=== PATIENT | male | born 1975 | race Caucasian/White ===

== ENCOUNTER → 2024-02-17 | Day surgery (SDC) | payer OTHER ==
[~2024-02-17] MED LIST: ALLEGRA ALLERGY60 MG PO; FLUOXETINE HCL10 MG PO; HYDROXYZINE HCL10 MG PO; LACTATED RINGER'S 1,000 ML ONE; LIDOCAINE HCL 2% LOCAL INJ 5 ML SDV VIAL INJ ONE; MIDAZOLAM HCL 2 MG/2 ML VIAL ONE; OMEPRAZOLE40 MG PO; PROPOFOL IV EMULSION 10 MG/ML 20 ML VIAL ONE
[2024-02-17 10:50] VITALS: TEMP 97.4
[2024-02-17 11:05] VITALS: BP 113/81; PULSE 59; RESP 16; O2SAT 99
== END | disposition home or self-care (01) ==
LOC: OR 09:27
PROVIDERS: ATTEND Internal Medicine Gastroenterology
DX: Z12.11 Encounter for screening for malignant neoplasm of colon (principal); D12.2 Benign neoplasm of ascending colon; D12.0 Benign neoplasm of cecum; D12.4 Benign neoplasm of descending colon; D12.3 Benign neoplasm of transverse colon; K64.8 Other hemorrhoids; K57.30 Diverticulosis of large intestine without perforation or abscess without bleeding; K21.9 Gastro-esophageal reflux disease without esophagitis; D64.9 Anemia, unspecified; R00.1 Bradycardia, unspecified; Z01.810 Encounter for preprocedural cardiovascular examination; Z79.899 Other long term (current) drug therapy
CPT/HCPCS: 45384; 45385; 93005; J2001; J2250; J2704; J7121; 45381

== ENCOUNTER → 2024-08-28 | Day surgery (SDC) | payer OTHER ==
[~2024-08-28] MED LIST changes: +FENTANYL CITRATE/PF 100MCG/2 ML INJ ONE; -LACTATED RINGER'S 1,000 ML ONE; -LIDOCAINE HCL 2% LOCAL INJ 5 ML SDV VIAL INJ ONE; -MIDAZOLAM HCL 2 MG/2 ML VIAL ONE; +SODIUM CHLORIDE 0.9% 0 ML ONE
[2024-08-28] MEDS: LACTATED RINGER'S 1,000 ML ONE (09:03)
[2024-08-28 13:00] VITALS: TEMP 97.5
[2024-08-28 13:30] VITALS: BP 115/62; PULSE 72; RESP 12; O2SAT 97
== END | disposition home or self-care (01) ==
LOC: ENDO 08:46
PROVIDERS: ATTEND Internal Medicine Gastroenterology
DX: K21.9 Gastro-esophageal reflux disease without esophagitis (principal); K29.70 Gastritis, unspecified, without bleeding; K22.2 Esophageal obstruction; K31.89 Other diseases of stomach and duodenum; K44.9 Diaphragmatic hernia without obstruction or gangrene; K57.90 Diverticulosis of intestine, part unspecified, without perforation or abscess without bleeding; K64.8 Other hemorrhoids; F32.A Depression, unspecified; Z01.810 Encounter for preprocedural cardiovascular examination; Z79.899 Other long term (current) drug therapy
CPT/HCPCS: 43239; 43249; 93005; J2704; J3010; J7121; 43450; J7050

== ENCOUNTER → 2024-09-11 | Day surgery (SDC) | payer OTHER ==
[~2024-09-11] MED LIST changes: +KETAMINE 50MG/5ML SYR ONE; +LIDOCAINE HCL 2% LOCAL INJ 5 ML SDV VIAL INJ ONE; -SODIUM CHLORIDE 0.9% 0 ML ONE
[2024-09-11] MEDS: LACTATED RINGER'S 1,000 ML ONE (12:00)
[2024-09-11 14:38] VITALS: TEMP 97.7
[2024-09-11 15:09] VITALS: BP 145/87; PULSE 82; RESP 18; O2SAT 98
== END | disposition home or self-care (01) ==
LOC: ENDO 11:38
PROVIDERS: ATTEND Internal Medicine Gastroenterology
DX: K21.9 Gastro-esophageal reflux disease without esophagitis (principal); K22.2 Esophageal obstruction; K29.70 Gastritis, unspecified, without bleeding; K44.9 Diaphragmatic hernia without obstruction or gangrene; K57.90 Diverticulosis of intestine, part unspecified, without perforation or abscess without bleeding; K64.8 Other hemorrhoids; E66.01 Morbid (severe) obesity due to excess calories; F32.A Depression, unspecified; Z79.899 Other long term (current) drug therapy
CPT/HCPCS: 43249; J2003; J2704; J3010; J7121; 43450

== ENCOUNTER 2024-12-14 12:59 | Emergency (ER) | payer OTHER ==
[~2024-12-14] VITALS: Ht 167.6 cm; Wt 74.8 kg
[~2024-12-14 12:59] MED LIST changes: -FENTANYL CITRATE/PF 100MCG/2 ML INJ ONE; -KETAMINE 50MG/5ML SYR ONE; -LIDOCAINE HCL 2% LOCAL INJ 5 ML SDV VIAL INJ ONE; -PROPOFOL IV EMULSION 10 MG/ML 20 ML VIAL ONE
[2024-12-14 13:33] VITALS: PULSE 89; RESP 18; TEMP 98.2
[2024-12-14 14:01] LABS: BASOPHILS % 0.3 % (0.0-1.0); EOSINOPHILS % 0.4 % (0.0-6.0); HEMATOCRIT 42.2 % (38.2-49.6); HEMOGLOBIN 14.2 g/dL (14.0-18.0); LYMPHOCYTES # (AUTO) 1.1 (1.0-3.2); LYMPHOCYTES % 14.3 % (18.0-39.1); MEAN CORPUSCULAR HEMOGLOBIN 30.5 pg (28-32); MEAN CORPUSCULAR HGB CONC 33.6 g/dL (31-35); MEAN CORPUSCULAR VOLUME 90.6 fL (81-99); MONOCYTES # (AUTO) 0.7 (0.2-0.8); MONOCYTES % 9.6 % (4.4-11.3); NEUTROPHILS # (AUTO) 5.6 (2.1-6.9); NEUTROPHILS % 75.3 % (38.7-80.0); PLATELET COUNT 233 x10e3/uL (140-360); RED BLOOD COUNT 4.66 x10e6/uL (4.3-5.7); RED CELL DISTRIBUTION WIDTH 13.7 % (11.7-14.4); WHITE BLOOD COUNT 7.39 x10e3/uL (4.8-10.8)
[2024-12-14] MEDS: SODIUM CHLORIDE 0.9% 1000ML 1,000 ML IV ONE (14:11)
[2024-12-14 14:19] LABS: ALBUMIN 4.2 g/dL (3.5-5.0); ALBUMIN/GLOBULIN RATIO 1.3 (0.8-2.0); ANION GAP 16.8 mmol/L (8-16); BILIRUBIN,TOTAL 0.5 mg/dL (0.2-1.2); CALCIUM 9.8 mg/dL (8.4-10.2); CREATININE, SERUM 0.97 mg/dL (0.72-1.25); POTASSIUM 3.8 mmol/L (3.5-5.1); TOTAL PROTEIN 7.4 g/dL (6.5-8.1)
[2024-12-14 14:33] LABS: LIPASE 19 U/L (8-78)
[2024-12-14 14:59] LABS: TROPONIN I < 0.001 ng/mL (0-0.300)
[2024-12-14 15:36] VITALS: BP 102/73; PULSE 78; RESP 16; TEMP 98.9; O2SAT 98
== END 2024-12-14 15:41 | disposition home or self-care (01) ==
LOC: ER 13:10
DX: R42 Dizziness and giddiness (principal); R55 Syncope and collapse; R10.13 Epigastric pain; R53.83 Other fatigue; I10 Essential (primary) hypertension; E78.5 Hyperlipidemia, unspecified; K21.9 Gastro-esophageal reflux disease without esophagitis
CPT/HCPCS: 36415; 71046; 80053; 82550; 83690; 84484; 85025; 93005; 99283; J7030

== ENCOUNTER 2025-04-03 11:45 | Emergency (ER) | payer OTHER ==
[~2025-04-03] VITALS: Ht 167.6 cm; Wt 74.8 kg
[2025-04-03 12:14] VITALS: PULSE 79; RESP 18; TEMP 97.6
[2025-04-03] MEDS ORDERED: DOXYCYCLINE HY100 MG PO (14:01)
[2025-04-03 14:14] VITALS: BP 123/77; PULSE 77; RESP 18; TEMP 99.1; O2SAT 100
== END 2025-04-03 14:16 | disposition home or self-care (01) ==
LOC: ER 12:46
DX: R05.9 Cough, unspecified (principal); J18.9 Pneumonia, unspecified organism; I10 Essential (primary) hypertension; E78.5 Hyperlipidemia, unspecified; K21.9 Gastro-esophageal reflux disease without esophagitis
CPT/HCPCS: 71045; 99283